=== PATIENT | male | born 1995 ===

== ENCOUNTER 2018-01-12 16:02 | Emergency (ER) | payer OTHER ==
--- NOTE | 2018-01-12 16:21 | ED PDOC ---
HPI: Psych/Substance Abuse Time Seen by Provider: 01/12/18 16:10 Chief Complaint (Nursing): Alcohol Ingestion Chief Complaint (Provider): Alcohol Intoxication History Per: Patient History/Exam Limitations: no limitations Current Symptoms Are (Timing): Still Present Suicide/Self Injury Attempted (Context): None Modifying Factor(s): Alcohol Additional Complaint(s): 22 year old male brought into the emergency department by EMS for alcohol intoxication. As per EMS, patient was found outside sleeping. Patient admits to consuming alcohol and also states that he is homeless. Denies fall, head trauma , head injury. No chest pain. Not suicidal or homicidal. No drugs. Past Medical History Reviewed: Historical Data, Nursing Documentation, Vital Signs Vital Signs: Last Vital Signs Temp 98.0 F 01/12/18 16:03 Pulse 104 H 01/12/18 16:03 Resp 16 01/12/18 16:03 BP 150/90 01/12/18 16:03 Pulse Ox 97 01/12/18 16:03 - Medical History PMH: No Chronic Diseases - Surgical History Surgical History: No Surg Hx - Family History Family History: States: Unknown Family Hx - Living Arrangements Living Arrangements: Other (adomic[place]) - Social History Alcohol: < 2 Drinks/Day - Allergies Allergies/Adverse Reactions: Allergies Allergy/AdvReac Type Severity Reaction Status Date / Time No Known Allergies Allergy Verified 01/12/18 16:03 Review of Systems ROS Statement: Except As Marked, All Systems Reviewed And Found Negative Constitutional: Positive for: Other (alcohol intoxication). Negative for: Fever Cardiovascular: Negative for: Chest Pain, Palpitations Gastrointestinal: Negative for: Nausea, Vomiting, Abdominal Pain Neurological: Negative for: Headache, Dizziness Physical Exam - Reviewed Nursing Documentation Reviewed: Yes Vital Signs Reviewed: Yes - Physical Exam Appears: Positive for: Non-toxic, No Acute Distress Head Exam: Positive for: ATRAUMATIC, NORMAL INSPECTION, NORMOCEPHALIC Skin: Positive for: Normal Color, Warm, Dry. Negative for: Rash Eye Exam: Positive for: Normal appearance, EOMI, PERRL ENT: Positive for: Normal ENT Inspection. Negative for: Nasal Congestion, Tonsillar Exudate, Tonsillar Swelling Neck: Positive for: Normal, Painless ROM, Supple Cardiovascular/Chest: Positive for: Regular Rate, Rhythm, Chest Non Tender. Negative for: Tachycardia Respiratory: Positive for: Normal Breath Sounds. Negative for: Rales, Rhonchi, Wheezing, Respiratory Distress Gastrointestinal/Abdominal: Positive for: Normal Exam, Bowel Sounds, Soft. Negative for: Tenderness, Mass, Guarding, Rebound Back: Positive for: Normal Inspection. Negative for: L CVA Tenderness, R CVA Tenderness Extremity: Positive for: Normal ROM. Negative for: Tenderness, Deformity, Swelling Neurologic/Psych: Positive for: Alert. Negative for: Motor/Sensory Deficits - Laboratory Results Interpretation Of Abn Labs: 405 etoh - ECG O2 Sat by Pulse Oximetry: 97 (RA) Pulse Ox Interpretation: Normal - Progress ED Course And Treament: 2340: Stable. Alert. AAOx3. Tolerated PO. Ambulated with no issues. Clinical sobriety met. Fu with clinic. Medical Decision Making Medical Decision Makin Initial Impression 22 year old male presenting with alcohol intoxication Initial Plan: * Alcohol Serum * 1:1 Observation * POC * Reevaluation ----- Documented by Haydee Lloyd acting as a scribe for Ascencion Martinez MD. All medical record entries made by the Scribe were at my direction and personally dictated by me. I have reviewed the chart and agree that the record accurately reflects my personal performance of the history, physical exam, medical decision making, and the department course for this patient. I have also personally directed, reviewed, and agree with the discharge instructions and disposition. Disposition - Clinical Impression Clinical Impression: Alcohol abuse - Patient ED Disposition Is Patient to be Admitted: No Counseled Patient/Family Regarding: Studies Performed, Diagnosis, Need For Followup - Disposition Referrals: [facility] [Outside] - 01/14/18 Disposition: Routine/Home Disposition Time: 23:41 Condition: STABLE Additional Instructions: Return if not better in 3 days. Instructions: Alcohol Abuse and Alcoholism (DC) Print Language: BELARUSIAN
[2018-01-12 22:39] VITALS: BP 131/70; PULSE 96; RESP 20; TEMP 98.7
[2018-01-12 23:38] VITALS: O2SAT 97
== END 2018-01-12 23:45 | disposition home or self-care (01) ==
LOC: H.ER 16:02
DX: F10.129 Alcohol abuse with intoxication, unspecified (principal); Z59.0 Homelessness

== ENCOUNTER 2018-06-27 14:11 | Emergency (ER) | payer OTHER, SELFPAY ==
[2018-06-27 14:28] VITALS: O2SAT 99
--- NOTE | 2018-06-27 14:52 | ED PDOC ---
HPI: Head Injury Chief Complaint (Provider): Headache, Laceration to forehead History Per: Customer Associate ([employer] sales associate #[id number]) History/Exam Limitations: no limitations Injury Occurred (Timing): Days Ago: (2) Patient States: Fell Striking Head Loss Of Consciousness: Minute(s) (x 30) Additional Complaint(s): 23 y/o male presents to the ED complaining of a head injury, sustained 2 days ago. States that he slipped and fell while crossing street, and struck his forehead onto the pavement. Patient reports he lost consciousness for approximately 30 min as his vision went black. He complains of dizziness and a headache since then. Patient notes he did not come to the ED right away because he felt unwell, and had a throbbing pain to the head. Last tetanus was 1 year ago. Otherwise he denies any nausea, vomiting, previous TBI, hx of seizures, neck pain, or other injury. <Andrew Hamilton E - Last Filed: 06/27/18 16:56> <Gay Wu - Last Filed: 06/28/18 15:42> Time Seen by Provider: 06/27/18 14:30 Chief Complaint (Nursing): Abnormal Skin Integrity Supervising Attending Note - Attestation: I have personally seen and examined this patient.: No I have reviewed all pertinent clinical information, including history, physical exam and plan: Yes <Gay Wu - Last Filed: 06/28/18 15:42> Past Medical History Reviewed: Historical Data, Nursing Documentation, Vital Signs Vital Signs: Last Vital Signs Temp 97 F L 06/27/18 14:25 Pulse 92 H 06/27/18 14:25 Resp 17 06/27/18 14:25 BP 139/86 06/27/18 14:25 Pulse Ox 99 06/27/18 14:25 - Family History Family History: States: Unknown Family Hx <Andrew Hamilton - Last Filed: 06/27/18 16:56> Vital Signs: Last Vital Signs Temp 98.7 F 06/27/18 17:30 Pulse 81 06/27/18 17:30 Resp 18 06/27/18 17:30 BP 135/91 H 06/27/18 17:30 Pulse Ox 99 06/27/18 20:51 <Wu,Gay F - Last Filed: 06/28/18 15:42> - Home Medications Home Medications: Ambulatory Orders Medication Instructions Recorded Cephalexin [cephalexin] 500 mg PO Q6 #12 cap 06/27/18 - Allergies Allergies/Adverse Reactions: Allergies Allergy/AdvReac Type Severity Reaction Status Date / Time No Known Allergies Allergy Verified 01/12/18 16:03 Review of Systems ROS Statement: Except As Marked, All Systems Reviewed And Found Negative Constitutional: Negative for: Fever Eyes: Negative for: Vision Change Cardiovascular: Negative for: Chest Pain Respiratory: Negative for: Shortness of Breath Gastrointestinal: Negative for: Nausea, Vomiting Musculoskeletal: Negative for: Neck Pain, Back Pain Skin: Positive for: Lesions (to right forehead) Neurological: Positive for: Headache, Dizziness, Other (Head trauma, +LOC). Negative for: Weakness, Numbness, Incoordination <Andrew Hamilton - Last Filed: 06/27/18 16:56> Physical Exam - Reviewed Nursing Documentation Reviewed: Yes Vital Signs Reviewed: Yes - Physical Exam Appears: Positive for: Non-toxic, No Acute Distress Head Exam: Positive for: NORMOCEPHALIC (w/ 1.5 inch non-gaping laceration to right side of forehead, just above the brow, with minimal surrounding erythema, no fluctuance, no discharge) Skin: Positive for: Normal Color, Warm, Dry Eye Exam: Positive for: Normal appearance, EOMI. Negative for: Nystagmus Neck: Positive for: Painless ROM, Supple Cardiovascular/Chest: Positive for: Regular Rate, Rhythm. Negative for: Murmur Respiratory: Positive for: Normal Breath Sounds. Negative for: Accessory Muscle Use, Respiratory Distress Gastrointestinal/Abdominal: Positive for: Soft. Negative for: Tenderness, Distended Extremity: Positive for: Normal ROM. Negative for: Tenderness, Deformity, Swelling Neurologic/Psych: Positive for: Alert, Oriented (x3), Gait (steady). Negative for: Motor/Sensory Deficits <Andrew Hamilton - Last Filed: 06/27/18 16:56> - ECG O2 Sat by Pulse Oximetry: 99 (RA) Pulse Ox Interpretation: Normal <Andrew Hamilton - Last Filed: 06/27/18 16:56> Medical Decision Making Medical Decision Making: Impression: 23 yo male with head injury s/p fall Initial Plan: --Head CT Head CT results: FINDINGS: HEMORRHAGE: No intracranial hemorrhage. BRAIN: No mass effect or edema. No atrophy or chronic microvascular ischemic changes. VENTRICLES: Unremarkable. No hydrocephalus. CALVARIUM: Unremarkable. PARANASAL SINUSES: Unremarkable as visualized. No significant inflammatory changes. MASTOID AIR CELLS: Unremarkable as visualized. No inflammatory changes. OTHER FINDINGS: None. IMPRESSION: Normal CT of the Head. No intracranial hemorrhage. Bacitracin applied to wound. Patient counseled regarding negative CT scan result. neuroscientist #[id number] utilized to ensure patient's understanding. Patient given wound care instructions and advised to take antibiotics as prescribed. Scribe Attestation: Documented by Quynh Elizondo, acting as a scribe for Andrew Hamilton PA-C. Provider Scribe Attestation: All medical record entries made by the Scribe were at my direction and personally dictated by me. I have reviewed the chart and agree that the record accurately reflects my personal performance of the history, physical exam, medical decision making, and the department course for this patient. I have also personally directed, reviewed, and agree with the discharge instructions and disposition. <Andrew Hamilton - Last Filed: 06/27/18 16:56> Disposition - Patient ED Disposition Is Patient to be Admitted: No - Disposition Disposition Time: 16:26 <Andrew Hamilton - Last Filed: 06/27/18 16:56> <Gay Wu - Last Filed: 06/28/18 15:42> - Clinical Impression Clinical Impression: Laceration, Head injury - Disposition Referrals: [facility] [place] [Outside] [facility] [Outside] Condition: STABLE Additional Instructions: TONY CARSON, thank you for letting us take care of you today. Your provider was Gay Wu MD and you were treated for STITCHES REMOVAL. The emergency medical care you received today was directed at your acute symptoms. If you were prescribed any medication, please fill it and take as directed. It may take several days for your symptoms to resolve. Return to the Emergency Department if your symptoms worsen, do not improve, or if you have any other problems. Please contact your doctor or call one of the physicians/clinics you have been referred to that are listed on the Patient Visit Information form that is included in your discharge packet. Bring any paperwork you were given at discharge with you along with any medications you are taking to your follow up visit. Our treatment cannot replace ongoing medical care by a primary care provider outside of the emergency department. Thank you for allowing the [facility] team to be part of your care today. If you had an X-Ray or CT scan: A Radiologist will review the ED reading if any change in treatment is needed we will contact you. If you had a blood, urine, or wound culture: It will take several days for the results, if any change in treatment is needed we will contact you. If you had an STI test: It will take 48 hours for the results. Please call after 1 week if you have not heard back. Prescriptions: Cephalexin [cephalexin] 500 mg PO Q6 #12 cap Instructions: Wound Care (DC), Postconcussion Syndrome (DC) Forms: [employer] (Swedish) Print Language: ESTONIAN - PA / RADIO/TV TECHNICIAN / Resident Statement / has reviewed & agrees with the documentation as recorded. <Andrew Hamilton E - Last Filed: 06/27/18 16:56>
--- NOTE | 2018-06-27 16:21 | CT ---
Date of service: 06/27/2018 PROCEDURE: CT HEAD WITHOUT CONTRAST. HISTORY: TRAUMA COMPARISON: Not available TECHNIQUE: Axial computed tomography images were obtained through the head/brain without intravenous contrast. Radiation dose: Total exam DLP = 778.11 mGy-cm. This CT exam was performed using one or more of the following dose reduction techniques: Automated exposure control, adjustment of the mA and/or kV according to patient size, and/or use of iterative reconstruction technique. FINDINGS: HEMORRHAGE: No intracranial hemorrhage. BRAIN: No mass effect or edema. No atrophy or chronic microvascular ischemic changes. VENTRICLES: Unremarkable. No hydrocephalus. CALVARIUM: Unremarkable. PARANASAL SINUSES: Unremarkable as visualized. No significant inflammatory changes. MASTOID AIR CELLS: Unremarkable as visualized. No inflammatory changes. OTHER FINDINGS: None. IMPRESSION: Normal CT of the Head. No intracranial hemorrhage.
[2018-06-27 23:17] VITALS: BP 135/91; PULSE 81; RESP 18; TEMP 98.7
== END 2018-06-27 17:35 | disposition home or self-care (01) ==
LOC: H.ER 14:11
DX: S01.81XA Laceration without foreign body of other part of head, initial encounter (principal); W01.0XXA Fall on same level from slipping, tripping and stumbling without subsequent striking against object, initial encounter; Y92.89 Other specified places as the place of occurrence of the external cause